=== PATIENT | female | born 1990 | race Caucasian/White ===

== ENCOUNTER 2018-07-03 10:23 | Inpatient (IN) | payer OTHER ==
[~2018-07-03] VITALS: Ht 157.5 cm; Wt 138.0 kg
[2018-07-03] MEDS ORDERED: morphine 4 MG/ML VIAL IV STA (11:09)
[2018-07-03] MEDS ORDERED: ONDANSETRON 4 MG INJ IV STA (11:09)
[2018-07-03] MEDS ORDERED: FAMOTIDINE 20 MG INJ IV STA (11:09)
[2018-07-03] MEDS ORDERED: SOD CHLORIDE 0.9% 1,000 ML IV STA (11:09)
[2018-07-03] MEDS ORDERED: morphine 2 MG INJ IV STA (12:27)
[2018-07-03] MEDS ORDERED: KETOROLAC 30 MG INJ IV STA (12:27)
[2018-07-03] MEDS ORDERED: PIPER-TAZO 3.375 GM IV (PMX) 100 ML IVPB ONE ×2 (14:00)
[2018-07-03] MEDS ORDERED: NACL 0.9% 3 ML SYG IV SCH (14:00)
[2018-07-03] MEDS ORDERED: ONDANSETRON 4 MG INJ IV PRN (14:00)
[2018-07-03] MEDS ORDERED: ACETAMINOPHEN 325 MG TAB PO PRN (14:00)
--- NOTE | 2018-07-03 14:04 | ERD ---
ER Documentation Chief Complaint Chief Complaint AP SINCE LAST NIGHT HPI This is a 28-year-old female with a past medical history of obesity, asthma who is presenting with 1 day of waxing and waning colicky aching right upper quadran t abdominal pain with nausea and a few episodes of nonbilious nonbloody vomiting. The patient does not endorse any alleviating or exacerbating factors. It came on suddenly last night. The patient does not report eating anything out of the ordinary. She does not endorse any constipation or diarrhea. She does not report any black or bloody or tarry stools. She does not report dysuria or hematuria or urgency or frequency. The patient denies feeling sick recently. The patient denies fever or chills. The patient has had no headache or vision changes. The patient does not endorse neck or back pain. The patient denies lightheadedness or dizziness. The patient has had no chest pain or trouble breathing. The patient has had no focal deficits. The patient has had no weakness or numbness or tingling to the face or extremities. ROS All systems reviewed and are negative except as per history of present illness. Allergies Allergies: Coded Allergies: No Known Allergy (Verified Allergy, Unknown, 04/13/06) PMhx/Soc Hx Respiratory Disorders: Yes (ASTHMA) Hx Alcohol Use: No Hx Substance Use: No Hx Tobacco Use: No FmHx Family History: No diabetes Physical Exam Vitals Vital Signs Date Temp Pulse Resp B/P (MAP) Pulse Ox O2 O2 Flow FiO2 Time Delivery Rate 07/03/18 99.0 89 18 150/72 99 10:25 (98) Physical Exam Const: No acute distress Head: Atraumatic Eyes: Normal Conjunctiva ENT: Normal External Ears, Nose and Mouth. Neck: Full range of motion. No meningismus. Resp: Clear to auscultation bilaterally Cardio: Regular rate and rhythm, no murmurs Abd: Obese. Right upper quadrant abdominal tenderness. No guarding or rebound. Normal bowel sounds Skin: No petechiae or rashes Back: No midline or flank tenderness Ext: No cyanosis, or edema Neur: Awake and alert Psych: Normal Mood and Affect Result Diagram: 07/03/18 1134 07/03/18 1300 Results 24 hrs Laboratory Tests Test 07/03/18 11:34 07/03/18 11:40 07/03/18 13:00 White Blood Count 11.7 10^3/ul Red Blood Count 4.31 10^6/ul Hemoglobin 12.5 g/dl Hematocrit 38.4 % Mean Corpuscular Volume 89.1 fl Mean Corpuscular Hemoglobin 29.0 pg Mean Corpuscular 32.6 g/dl Hemoglobin Concent Red Cell Distribution Width 13.5 % Platelet Count 308 10^3/UL Mean Platelet Volume 11.3 fl Immature Granulocytes % 0.400 % Neutrophils % 75.6 % Lymphocytes % 16.9 % Monocytes % 5.5 % Eosinophils % 1.3 % Basophils % 0.3 % Nucleated Red Blood Cells % 0.0 /100WBC Immature Granulocytes # 0.050 10^3/ul Neutrophils # 8.9 10^3/ul Lymphocytes # 2.0 10^3/ul Monocytes # 0.7 10^3/ul Eosinophils # 0.2 10^3/ul Basophils # 0.0 10^3/ul Nucleated Red Blood Cells # 0.0 10^3/ul Urine Color YELLOW Urine Clarity SLIGHTLY CLOUDY Urine pH 8.0 Urine Specific [place] 1.014 Urine Ketones NEGATIVE mg/dL Urine Nitrite NEGATIVE mg/dL Urine Bilirubin NEGATIVE mg/dL Urine Urobilinogen NEGATIVE mg/dL Urine Leukocyte Esterase NEGATIVE Armin/ul Urine Microscopic RBC 5 /HPF Urine Microscopic WBC 2 /HPF Urine Squamous Epithelial Cells FEW /HPF Urine Hemoglobin 2+ mg/dL Urine Glucose NEGATIVE mg/dL Urine Total Protein NEGATIVE mg/dl POC Beta HCG, Qualitative NEGATIVE Sodium Level 139 mmol/L Potassium Level 4.2 mmol/L Chloride Level 106 mmol/L Carbon Dioxide Level 27 mmol/L Anion Gap 6 Blood Urea Nitrogen 10 mg/dl Creatinine 0.55 mg/dl Est Glomerular Filtrat > 60 mL/min Rate mL/min Glucose Level 98 mg/dl Calcium Level 9.2 mg/dl Total Bilirubin 0.5 mg/dl Direct Bilirubin 0.00 mg/dl Indirect Bilirubin 0.5 mg/dl Aspartate Amino Transf (AST/SGOT) 26 IU/L Alanine 30 IU/L Aminotransferase (ALT/SGPT) Alkaline Phosphatase 62 IU/L Total Protein 7.4 g/dl Albumin 4.3 g/dl Globulin 3.10 g/dl Albumin/Globulin Ratio 1.38 Lipase 91 U/L Current Medications Medications Dose Sig/Mickey Start Time Status Last (Trade) Ordered Route PRN Stop Time Admin Dose Reason Admin Sodium 1,000 ml @ Q1H STAT 07/03/18 DC 07/03/18 Chloride 1,000 mls/hr IV 11:09 11:33 07/03/18 12:08 Morphine 4 mg ONCE STAT 07/03/18 DC 07/03/18 Sulfate IV 11:09 11:28 (morphine) 07/03/18 11:10 Ondansetron 4 mg ONCE STAT 07/03/18 DC 07/03/18 HCl (Zofran IV 11:09 11:28 Inj) 07/03/18 11:10 Famotidine 20 mg ONCE STAT 07/03/18 DC 07/03/18 (Pepcid Iv) IV 11: 11:28 07/03/18 11:10 Ketorolac 30 mg ONCE STAT 07/03/18 DC 07/03/18 Tromethamine IV 12:27 12:42 (Toradol) 07/03/18 12:28 Morphine 2 mg ONCE STAT 07/03/18 DC 07/03/18 Sulfate IV 12:27 12:42 (morphine) 07/03/18 12:28 Piperacillin 100 ml @ ONCE ONCE 07/03/18 UNV Sod/ 200 mls/hr IVPB 14:00 Tazobactam 07/03/18 14:29 Sod Procedures/MDM MDM The patient's presentation warrants further investigation. Previous medical records, if available, were reviewed. LABS The patient's laboratory testing was obtained and reviewed. No emergent treatment was required unless described below. CBC: Mild leukocytosis without shift, potentially reactive. No E/o severe anemia or thrombocytopenia Chemistry: No E/o severe acidosis or alkalosis or renal failure or liver disease or diabetic ketoacidosis Lipase: No E/o pancreatitis Urine: No E/o acute infection or hematuria IMAGING Imaging and Radiology interpretation reviewed. US GB FINDINGS: The liver is enlarged at 18.1 cm with a coarsened echotexture throughout without focal mass or intrahepatic biliary dilatation. There is n ormal hepatopedal flow within the main portal vein. The gallbladder is remarkable for echogenic, shadowing calculi with mild wall thickening at 3.2 mm with trace pericholecystic fluid. The common bile duct measures 11.7 mm in maximal dimension. The visualized portions of the pancreas are unremarkable with obscuration of the tail of the pancreas. No free fluid is identified. The right kidney measures 11.8 cm in length. There is normal echogenicity within the right kidney. There is no perinephric fluid collection. No hydronephrosis, mass, or calculus is seen. IMPRESSION: 1. Cholelithiasis with mild gallbladder wall thickening and trace pericholecystic fluid with a mildly dilated common bile duct. This may be associated with acute cholecystitis as well. Correlation with clinical and laboratory findings is suggested. 2. Mild hepatomegaly with a coarsened echotexture suggesting diffuse steatosis. Electronically viewed and signed by Physician Christina on 07/03/2018 12:2 5 TREATMENT/DISPOSITION The patient presents with right upper quadrant abdominal pain. The patient does have evidence of cholelithiasis, biliary colic and possible cholecystitis. The patient was treated for her pain in the emergency department, we are not able to get her pain under control. I do feel the patient would benefit from admission for refractory biliary colic and for evaluation by general surgery for possible cholecystitis. The patient was given Zosyn in the emergency department. I do not believe the patient is septic and I do not feel the patient requires a full septic work-up. Preoperative testing was completed. Dr. Stover, the on-call general surgeon, was consulted on the case. He will evaluate the patient in the hospital. He requested that a HIDA scan be completed. This was ordered. The patient does not have any evidence of peritonitis. The patient does not have clinical symptoms concerning for mesenteric ischemia or ischemic colitis. The patient does not have any epigastric pain. I have low suspicion for gastritis, PUD or GERD. The patient does not have left upper quadrant tenderness. I have low suspicion for pancreatitis. The patient does not have any right lower quadrant tenderness, or periumbilical tenderness. I have low suspicion for appendicitis. The patient does not have suprapubic tenderness. I have decreased suspicion for cystitis. The patient does not have any left lower quadrant tenderness, and I have low suspicion for diverticulosis or diverticulitis. The patient does not have any flank tenderness. The patient does not have gross hematuria. I have decreased suspicion for nephrolithiasis or renal colic. The patient does not have any palpable pulsatile mass or severe abdominal pain radiating to the back. I have low suspicion for aortic aneurysm, dissection or rupture. ADMISSION At this time, I feel that the patient requires admission for further evaluation and management. The patient will be admitted to [Panel] in accordance with the patient's insurance. The patient was accepted by Dr. Teresa at 1:46 PM on July 03, 2018. Dr. Stover, the on-call general surgeon, was consulted and will evaluate the patient in the hospital. Disclaimer: Inadvertent spelling and grammatical errors are likely due to EHR/dictation software use and do not reflect on the overall quality of patient care. Note that the electronic time recorded on this note does not necessarily reflect the actual time of the patient encounter. Departure Diagnosis: Primary Impression: Cholecystitis Additional Impressions: Recurrent biliary colic Leukocytosis Leukocytosis type: unspecified Qualified Codes: D72.829 - Elevated white blood cell count, unspecified Right upper quadrant abdominal pain Nausea and vomiting Vomiting type: unspecified Vomiting Intractability: non-intractable Qualified Codes: R11.2 - Nausea with vomiting, unspecified Condition: Serious PURNIMA BREAUX MD July 03, 2018 14:04
[2018-07-03] MEDS: SOD CHLORIDE 0.9% 1,000 ML IV SCH ×2 (14:35→22:34)
[2018-07-03] MEDS ORDERED: ALBU18HF INHALATION (14:51)
--- NOTE | 2018-07-03 14:57 | HP ---
Date/Time of Note Date/Time of Note DATE: 07/03/18 TIME: 14:57 Assessment/Plan VTE Prophylaxis Pharmacological prophylaxis: other Lines/Catheters IV [facility] Saline Lock Assessment/Plan Hospital Course Patient is a female with past medical history significant for obesity as well as occasional asthma who presents to [facility] for abdominal pain. Patient states that last night around 9 PM she began to have right upper quadrant pain however she thought this was just gastritis and tried some Pepto-Bismol and Mylanta. Patient states that this has happened occasionally in the past however whenever she takes Mylanta in a couple hours it would go away. The pain this time did not go away and continue to bother her which prompted her to come to the emergency room. Patient currently still says that there is pain involved however it is manageable with pain medications. Patient does have some nausea and had some episodes of vomiting, nonbilious nonbloody. Patient has no other issues at this current time, no shortness of breath, no chest pain, no headache, no leg pain, no bowel or bladder dysfunct ion. Patient is in relatively good health except for her obesity and occasional asthma where she needs an occasional inhaler when she gets ill. Objective Physical exam General: Patient is laying in bed and answers questions appropriately Mentation: Patient is alert and oriented 4, Head: Normocephalic atraumatic Eyes: EOMI, pupils reactive to light Neck: Supple, nontender, midline Respiratory: Clear to auscultation bilaterally Cardiovascular: regular rate, no obvious murmurs Gastrointestinal: Right upper quadrant tender to palpation, bowel sounds heard. Neurological: Moves all extremities spontaneously Skin: No new skin lesions Assessment and plan Right upper quadrant abdominal pain, possible cholecystitis -Ultrasound showing possible cholecystitis, versus other gastritis -PPI twice daily for now -General surgeon has been consulted, recommends HIDA scan, ordered -N.p.o. -IV antibiotic -IV fluid Asthma -As needed duo nebs as patient does not need inhaler every day Obesity -Dietary modifications recommended Disposition -Pending HIDA results. Result Diagram: 07/03/18 1134 07/03/18 1300 Results 24hrs Laboratory Tests Test 07/03/18 11:34 07/03/18 11:40 07/03/18 13:00 07/03/18 14:21 White Blood Count 11.7 H Red Blood Count 4.31 Hemoglobin 12.5 Hematocrit 38.4 Mean Corpuscular 89.1 Volume Mean Corpuscular 29.0 Hemoglobin Mean Corpuscular 32.6 Hemoglobin Concen t Red Cell 13.5 Distribution Width Platelet Count 308 Mean Platelet 11.3 H Volume Immature 0.400 Granulocytes % Neutrophils % 75.6 Lymphocytes % 16.9 Monocytes % 5.5 Eosinophils % 1.3 Basophils % 0.3 Nucleated Red 0.0 Blood Cells % Immature 0.050 H Granulocytes # Neutrophils # 8.9 H Lymphocytes # 2.0 Monocytes # 0.7 Eosinophils # 0.2 Basophils # 0.0 Nucleated Red 0.0 Blood Cells # Urine Color YELLOW Urine Clarity SLIGHTLY CLOUDY A Urine pH 8.0 Urine Specific 1.014 [place]ana Urine Ketones NEGATIVE Urine Nitrite NEGATIVE Urine Bilirubin NEGATIVE Urine NEGATIVE Urobilinogen Urine Leukocyte NEGATIVE Esterase Urine Microscopic 5 RBC Urine Microscopic 2 WBC Urine Squamous FEW Epithelial Cells Urine Hemoglobin 2+ H Urine Glucose NEGATIVE Urine Total NEGATIVE Protein POC Beta HCG, NEGATIVE Qualitative Sodium Level 139 Potassium Level 4.2 Chloride Level 106 Carbon Dioxide 27 Level Anion Gap 6 Blood Urea 10 Nitrogen Creatinine 0.55 Est Glomerular > 60 Filtrat Rate mL/min Glucose Level 98 Calcium Level 9.2 Total Bilirubin 0.5 Direct Bilirubin 0.00 Indirect 0.5 Bilirubin Aspartate Amino 26 Transf (AST/SGOT) Alanine 30 Aminotransferase (ALT/SGPT) Alkaline 62 Phosphatase Total Protein 7.4 Albumin 4.3 Globulin 3.10 Albumin/Globulin 1.38 Ratio Lipase 91 Prothrombin Time 13.2 Prothrombin Time 1.0 Ratio INR International 0.99 Normalized Ratio HPI/ROS Admit Date/Time Admit Date/Time PMH/Family/Social Past Medical History Medications Current Medications Acetaminophen (Tylenol Tab) 650 mg ER BRIDGE PRN PO .MILD PAIN 1-3 OR TEMP; Start 07/03/18 at 14:00; Stop 07/04/18 at 13:59 Piperacillin Sod/ Tazobactam Sod 100 ml @ 200 mls/hr Q6 IVPB ; Start 07/03/18 at 18:00 Sodium Chloride 1,000 ml @ 150 mls/hr Q6H40M IV Last administered on 07/03/18at 14:35; Admin Dose 150 MLS/HR; Start 07/03/18 at 13:56 IV Flush (NS 3 ml) 3 ml PER PROTOCOL IV ; Start 07/03/18 at 14:00 Ondansetron HCl (Zofran Inj) 4 mg Q6H PRN IV NAUSEA/VOMITING; Start 07/03/18 at 14:00 Acetaminophen/ Hydrocodone Bitart ([place] (5/325)) 1 tab Q6H PRN PO .PAIN 4-6; Start 07/03/18 at 14:00 Morphine Sulfate (morphine) 4 mg Q4H PRN IV .PAIN 7-10; Start 07/03/18 at 14:00 Pantoprazole (Protonix Iv) 40 mg BID IV ; Start 07/04/18 at 06:00; Status UNV Coded Allergies: diphenhydramine (Unverified Allergy, Unknown, 07/03/18) Social History Smoking Status: Never smoker Exam/Review of Systems Vital Signs Vitals Vital Signs Date Temp Pulse Resp B/P (MAP) Pulse Ox O2 O2 Flow FiO2 Time Delivery Rate 07/03/18 66 16 104/56 100 Room Air 14:00 (72) 07/03/18 99.0 10:25 CESARIO JOSEPH July 03, 2018 14:57
[2018-07-03] MEDS ORDERED: ALBUTEROL/IPRATROPIUM (NEB) 3 ML AMP HHN PRN (15:00)
[2018-07-03] MEDS: PIPER-TAZO 3.375 GM IV (PMX) 100 ML IVPB SCH (17:30)
[2018-07-03] MEDS: PANTOPRAZOLE 40 MG INJ IV SCH (17:30)
[2018-07-03 22:09] VITALS: BP 124/69; PULSE 72; RESP 18
[2018-07-03 22:13] VITALS: Ht 157.5 cm; Wt 138.0 kg
[2018-07-03] MEDS: ONDANSETRON 4 MG INJ IV PRN (22:34)
[2018-07-03] MEDS: morphine 2 MG INJ IV PRN (22:34)
[2018-07-04] MEDS: PIPER-TAZO 3.375 GM IV (PMX) 100 ML IVPB SCH ×4 (00:12→18:37)
[2018-07-04 01:11] VITALS: BP 115/61; PULSE 89; RESP 18
[2018-07-04] MEDS: SOD CHLORIDE 0.9% 1,000 ML IV SCH ×7 (03:07→23:16)
[2018-07-04] MEDS: PANTOPRAZOLE 40 MG INJ IV SCH (05:50)
[2018-07-04] MEDS ORDERED: PANTOPRAZOLE 40 MG INJ IV SCH (06:00)
[2018-07-04] MEDS: morphine 2 MG INJ IV PRN ×5 (06:06→22:39)
[2018-07-04] MEDS ORDERED: NEOSTIGMINE 3 MG/3 ML SYRINGE ONE (07:00)
[2018-07-04] MEDS ORDERED: DESFLURANE 15 MIN ONE (07:00)
[2018-07-04] MEDS ORDERED: GLYCOPYRROLATE 0.4 MG INJ ONE (07:00)
[2018-07-04 07:49] VITALS: BP 122/56; PULSE 95; RESP 18
--- NOTE | 2018-07-04 09:14 | PREAC ---
Date/Time of Note Date/Time of Note DATE: 07/04/18 TIME: 09:13 Anesthesia Eval and Record Evaluation Time Pre-Procedure Interview DATE: 07/04/18 TIME: 09:13 Age 28 Sex female NPO: 8 hrs (07/02/18) Preoperative diagnosis cholecystitis Planned procedure laparoscopic possible open cholecystectomy Past Medical History Past Medical History: Includes Pulm: Asthma (asthma symptoms triggered by URI. Well controlled asthma. Last year used albuterol once. ) GI: GERD (DENIES GERD), Morbid obesity (BMI 55) Surgery & Anesthesia Issues No known issue (spinal anesthesia for csection twice) Meds Anticoagulation: No Beta Kathleen within 24 hr: No Reason Beta Kathleen not given: Pt. not on B-Kathleen Reported Medications Albuterol Sulfate* (Ventolin HFA*) 18 Gm Hfa.aer.ad, 2 PUFF INHALATION Q4H PRN for NEEDED, #1 INHALER 07/03/18 Current Medications Acetaminophen (Tylenol Tab) 650 mg ER BRIDGE PRN PO .MILD PAIN 1-3 OR TEMP; Start 07/03/18 at 14:00; Stop 07/04/18 at 13:59 Piperacillin Sod/ Tazobactam Sod 100 ml @ 200 mls/hr Q6 IVPB Last administered on 07/04/18at 05:51; Admin Dose 200 MLS/HR; Start 07/03/18 at 18:00 Sodium Chloride 1,000 ml @ 150 mls/hr Q6H40M IV Last administered on 07/04/18at 06:07; Admin Dose 150 MLS/HR; Start 07/03/18 at 13:56 IV Flush (NS 3 ml) 3 ml PER PROTOCOL IV ; Start 07/03/18 at 14:00 Ondansetron HCl (Zofran Inj) 4 mg Q6H PRN IV NAUSEA/VOMITING Last administered on 07/03/18at 22:34; Admin Dose 4 MG; Start 07/03/18 at 14:00 Acetaminophen/ Hydrocodone Bitart ([place] (5/325)) 1 tab Q6H PRN PO .PAIN 4-6; Start 07/03/18 at 14:00 Morphine Sulfate (morphine) 4 mg Q4H PRN IV .PAIN 7-10 Last administered on 07/04/18at 06:06; Admin Dose 4 MG; Start 07/03/18 at 14:00 Pantoprazole (Protonix Iv) 40 mg 0600,1800 IV Last administered on 07/04/18at 05:50; Admin Dose 40 MG; Start 07/03/18 at 18:00 Albuterol/ Ipratropium (Duoneb) 3 ml Q2H RESP THERAPY PRN HHN shortness of breath; Start 07/03/18 at 15:00 Meds reviewed: Yes Allergies Coded Allergies: diphenhydramine (Unverified Allergy, Intermediate, 07/03/18) PT DEVELOPS HIVES Allergies Reviewed: Yes Labs/Studies Labs Reviewed: Reviewed by anesthesiologist Result Diagram: 07/04/18 0452 07/04/18 0500 Laboratory Tests 07/04/18 04:52 07/04/18 05:00 Blood Bank Test 07/03/18 14:21 Antibody Screen NEGATIVE Blood Type A POSITIVE test: Negative (beta hcg qualitative NEGATIVE) Pre-procedure Exam Last vitals Vital Signs Date Temp Pulse Resp B/P (MAP) Pulse Ox O2 O2 Flow FiO2 Time Delivery Rate 07/04/18 98.8 95 18 122/56 94 07:49 (78) 07/03/18 Room Air 21:40 Airway: Adequate mouth opening, Adequate thyromental dist Mallampati: Mallampati III (thick short neck, rec glidescope for intubation) Teeth: Normal Lung: Normal Heart: Normal ASA Physical Status ASA physical status: 2 Emergency: E Planned Anesthetic General/MAC: ETT Nerve block: TAP (bilateral) Planned Pain Management Single shot nerve block, Parenteral pain med, Local by surgeon Pre-operative Attestations Prior to commencing anesthesia and surgery, the patient was re-evaluated, there was verification of: *The patient's identity *The results of appropriate recent lab work and preoperative vital signs *The above evaluation not changing prior to induction *Anesthetic plan, risk benefits, alternative and complications discussed with patient/family; questions answered; patient/family understands, accepts and wishes to proceed. BANDAR LEARY July 04, 2018 09:14
[2018-07-04] MEDS: ONDANSETRON 4 MG INJ IV PRN ×3 (10:59→22:39)
--- NOTE | 2018-07-04 12:43 | PN ---
Date/Time of Note Date/Time of Note DATE: 07/04/18 TIME: 12:41 Objective Vitals Vital Signs Date Temp Pulse Resp B/P (MAP) Pulse Ox O2 O2 Flow FiO2 Time Delivery Rate 07/04/18 98.8 95 18 122/56 94 07:49 (78) 07/03/18 Room Air 21:40 Intake and Output 07/03/18 07/03/18 07/04/18 1515:00 23:00 07:00 IntakeIntake Total 1200 ml BalanceBalance 1200 ml Results Result Diagram: 07/04/18 0452 07/04/18 0500 Medications Medications Current Medications Acetaminophen (Tylenol Tab) 650 mg ER BRIDGE PRN PO .MILD PAIN 1-3 OR TEMP; Start 07/03/18 at 14:00; Stop 07/04/18 at 13:59 Piperacillin Sod/ Tazobactam Sod 100 ml @ 200 mls/hr Q6 IVPB Last administered on 07/04/18at 12:26; Admin Dose 200 MLS/HR; Start 07/03/18 at 18:00 Sodium Chloride 1,000 ml @ 150 mls/hr Q6H40M IV Last administered on 07/04/18at 06:07; Admin Dose 150 MLS/HR; Start 07/03/18 at 13:56 IV Flush (NS 3 ml) 3 ml PER PROTOCOL IV ; Start 07/03/18 at 14:00 Ondansetron HCl (Zofran Inj) 4 mg Q6H PRN IV NAUSEA/VOMITING Last administered on 07/04/18at 10:59; Admin Dose 4 MG; Start 07/03/18 at 14:00 Acetaminophen/ Hydrocodone Bitart ([place] (5/325)) 1 tab Q6H PRN PO .PAIN 4-6; Start 07/03/18 at 14:00 Morphine Sulfate (morphine) 4 mg Q4H PRN IV .PAIN 7-10 Last administered on 07/04/18at 10:28; Admin Dose 4 MG; Start 07/03/18 at 14:00 Pantoprazole (Protonix Iv) 40 mg 0600,1800 IV Last administered on 07/04/18at 05:50; Admin Dose 40 MG; Start 07/03/18 at 18:00 Albuterol/ Ipratropium (Duoneb) 3 ml Q2H RESP THERAPY PRN HHN shortness of breath; Start 07/03/18 at 15:00 VTE Prophylaxis Risk score (from Nsg)>0 risk: 1 SCD applied (from Ns): Yes Lines/Catheters IV Catheter Type: Figueroa in Place: No Assessment/Plan Hospital Course Subjective Patient still has mild residual abdominal pain however feels much better than yesterday Objective Physical exam General: Patient is laying in bed and answers questions appropriately Mentation: Patient is alert and oriented 4, Head: Normocephalic atraumatic Eyes: EOMI, pupils reactive to light Neck: Supple, nontender, midline Respiratory: Clear to auscultation bilaterally Cardiovascular: regular rate, no obvious murmurs Gastrointestinal: Right upper quadrant tender to palpation, bowel sounds heard. Neurological: Moves all extremities spontaneously Skin: No new skin lesions Assessment and plan Right upper quadrant abdominal pain, likely cholecystitis -Ultrasound showing possible cholecystitis, HIDA scan more consistent with cholecystitis -PPI twice daily for now, for associated gastritis -General surgeon has been consulted, planning for surgery today -N.p.o. -IV antibiotic -IV fluid Asthma -As needed duo nebs as patient does not need inhaler every day Obesity -Dietary modifications recommended Disposition -surgery today CESARIO JOSEPH July 04, 2018 12:43
[2018-07-04 13:18] VITALS: BP 120/65; PULSE 92; RESP 18
--- NOTE | 2018-07-04 15:16 | CONS ---
Assessment/Plan Assessment/Plan Assessment/Plan (Daily) Acute cholecystitis Plan: Laparoscopic cholecystectomy, possible open. I have discussed the procedu re, outcomes, expectations, alternatives and risks in detail with the patient who has an excellent understanding of the nature situation and agrees to the proposed plan of therapy as outlined. Consultation Date/Type/Reason Admit Date/Time Date of Consultation: July 04, 2018 Type of Consult General surgery Reason for Consultation Acute cholecystitis Date/Time of Note DATE: 07/04/18 TIME: 15:13 Hx of Present Illness The patient is a 28-year-old female who is readmitted with symptoms of biliary colic. She has known gallstone disease. Yesterday she was noted to have a tender right upper quadrant, a slightly elevated white blood cell count, and a HIDA scan was performed which was compatible with acute cholecystitis and nonvisualization of the gallbladder. Her LFTs are normal. She has had no fevers chills or jaundice. Review of systems HEENT: Unremarkable Pulmonary: History of asthma Cardiac: No history of chest pain, KS or arrhythmia GI: Morbid obesity. As in the HPI : 3 previous pregnancies Past Medical History Medical History: gallstones Home Meds Reported Medications Albuterol Sulfate* (Ventolin HFA*) 18 Gm Hfa.aer.ad, 2 PUFF INHALATION Q4H PRN for NEEDED, #1 INHALER 07/03/18 Medications Current Medications Piperacillin Sod/ Tazobactam Sod 100 ml @ 200 mls/hr Q6 IVPB Last administered on 07/04/18at 12:26; Admin Dose 200 MLS/HR; Start 07/03/18 at 18:00 Sodium Chloride 1,000 ml @ 150 mls/hr Q6H40M IV Last administered on 07/04/18at 14:02; Admin Dose 150 MLS/HR; Start 07/03/18 at 13:56 IV Flush (NS 3 ml) 3 ml PER PROTOCOL IV ; Start 07/03/18 at 14:00 Ondansetron HCl (Zofran Inj) 4 mg Q6H PRN IV NAUSEA/VOMITING Last administered on 07/04/18at 10:59; Admin Dose 4 MG; Start 07/03/18 at 14:00 Acetaminophen/ Hydrocodone Bitart ([place] (5/325)) 1 tab Q6H PRN PO .PAIN 4-6; Start 07/03/18 at 14:00 Morphine Sulfate (morphine) 4 mg Q4H PRN IV .PAIN 7-10 Last administered on 07/04/18at 14:28; Admin Dose 4 MG; Start 07/03/18 at 14:00 Albuterol/ Ipratropium (Duoneb) 3 ml Q2H RESP THERAPY PRN HHN shortness of breath; Start 07/03/18 at 15:00 Famotidine (Pepcid Iv) 20 mg Q12 IV ; Start 07/04/18 at 21:00 Allergies: Coded Allergies: diphenhydramine (Unverified Allergy, Intermediate, 07/03/18) PT DEVELOPS HIVES Past Surgical History Past Surgical Hx: no surgical history Family History Significant Family History: no pertinent family hx Social History Smoking Status: Never smoker Exam/Review of Systems Exam Vitals Vital Signs Date Temp Pulse Resp B/P (MAP) Pulse Ox O2 O2 Flow FiO2 Time Delivery Rate 07/04/18 99.2 92 18 120/65 97 13:18 (83) 07/03/18 Room Air 21:40 Intake and Output 07/03/18 07/03/18 07/04/18 1515:00 23:00 07:00 IntakeIntake Total 1200 ml BalanceBalance 1200 ml Constitutional: alert, oriented Psych: no complaints Head: normocephalic Eyes: nl conjunctiva ENMT: nl external ears & nose Neck: supple Respiratory: clear to auscultation Cardiovascular: regular rate and rhythm Gastrointestinal: tender (Abdomen is obese with slight tenderness to deep palpation in the right upper quadrant) Musculoskeletal: nl extremities to inspection Extremities: normal pulses Neurological: MOTOR COACH CHAUFFEUR II-XII intact Skin: nl turgor Results Result Diagram: 07/04/18 0452 07/04/18 0500 Results 24hrs Laboratory Tests Test 07/04/18 04:52 07/04/18 05:00 White Blood Count 10.0 Red Blood Count 3.69 L Hemoglobin 10.7 L Hematocrit 33.2 L Mean Corpuscular Volume 90.0 Mean Corpuscular Hemoglobin 29.0 Mean Corpuscular Hemoglobin Concent 32.2 Red Cell Distribution Width 14.1 Platelet Count 246 # Mean Platelet Volume 11.0 H Immature Granulocytes % 0.300 Neutrophils % 70.3 Lymphocytes % 17.6 Monocytes % 8.4 Eosinophils % 3.1 Basophils % 0.3 Nucleated Red Blood Cells % 0.0 Immature Granulocytes # 0.030 Neutrophils # 7.0 Lymphocytes # 1.8 Monocytes # 0.8 Eosinophils # 0.3 Basophils # 0.0 Nucleated Red Blood Cells # 0.0 Hemoglobin A1c 5.6 Sodium Level 141 Potassium Level 4.4 Chloride Level 109 Carbon Dioxide Level 29 Anion Gap 3 L Blood Urea Nitrogen 12 Creatinine 0.82 Est Glomerular Filtrat Rate mL/min > 60 Glucose Level 109 Calcium Level 8.4 Magnesium Level 2.3 Total Bilirubin 0.7 Direct Bilirubin 0.00 Indirect Bilirubin 0.7 Aspartate Amino Transf (AST/SGOT) 24 Alanine Aminotransferase (ALT/SGPT) 33 Alkaline Phosphatase 56 Total Protein 6.3 # Albumin 3.6 Globulin 2.70 Albumin/Globulin Ratio 1.33 Triglycerides Level 101 Cholesterol Level 110 LDL Cholesterol, Calculated 54 HDL Cholesterol 36 Cholesterol/HDL Ratio 3.0 Thyroid Stimulating Hormone (TSH) 3.630 Medications Medication Current Medications Piperacillin Sod/ Tazobactam Sod 100 ml @ 200 mls/hr Q6 IVPB Last administered on 07/04/18 12:26; Admin Dose 200 MLS/HR; Start 07/03/18 at 18:00 Sodium Chloride 1,000 ml @ 150 mls/hr Q6H40M IV Last administered on 07/04/18 14:02; Admin Dose 150 MLS/HR; Start 07/03/18 at 13:56 IV Flush (NS 3 ml) 3 ml PER PROTOCOL IV ; Start 07/03/18 at 14:00 Ondansetron HCl (Zofran Inj) 4 mg Q6H PRN IV NAUSEA/VOMITING Last administered on 07/04/18at 10:59; Admin Dose 4 MG; Start 07/03/18 at 14:00 Acetaminophen/ Hydrocodone Bitart ([place] (5/325)) 1 tab Q6H PRN PO .PAIN 4-6; Start 07/03/18 at 14:00 Morphine Sulfate (morphine) 4 mg Q4H PRN IV .PAIN 7-10 Last administered on 07/04/18 14:28; Admin Dose 4 MG; Start 07/03/18 at 14:00 Albuterol/ Ipratropium (Duoneb) 3 ml Q2H RESP THERAPY PRN HHN shortness of breath; Start 07/03/18 at 15:00 Famotidine (Pepcid Iv) 20 mg Q12 IV ; Start 07/04/18 at 21:00 GEMA POLLARD MD July 04, 2018 15:16
[2018-07-04] MEDS: HYDROCODONE/APAP (5/325) TAB PO PRN (16:46)
[2018-07-04 20:18] VITALS: BP 114/58; PULSE 91; RESP 18
[2018-07-04] MEDS: FAMOTIDINE 20 MG INJ IV SCH (21:11)
[2018-07-05] VITALS (17 sets, daily range): BP systolic 115–137; BP diastolic 53–73; PULSE 82–116; RESP 16–26
[2018-07-05] MEDS: PIPER-TAZO 3.375 GM IV (PMX) 100 ML IVPB SCH ×5 (00:18→23:58)
[2018-07-05] MEDS: HYDROCODONE/APAP (5/325) TAB PO PRN (01:48)
[2018-07-05] MEDS ORDERED: ACETAMINOPHEN 1000MG/100ML IV 100 ML IVPB ONE (03:00)
[2018-07-05] MEDS: SOD CHLORIDE 0.9% 1,000 ML IV SCH ×4 (05:01→20:38)
[2018-07-05] MEDS: morphine 2 MG INJ IV PRN ×3 (05:01→20:39)
[2018-07-05] MEDS ORDERED: NEOSTIGMINE 3 MG/3 ML SYRINGE ONE (07:00)
[2018-07-05] MEDS ORDERED: GLYCOPYRROLATE 0.4 MG INJ ONE (07:00)
--- NOTE | 2018-07-05 09:01 | PREAC ---
Date/Time of Note Date/Time of Note DATE: 07/05/18 TIME: 09:00 Anesthesia Eval and Record Evaluation Time Pre-Procedure Interview DATE: 07/05/18 TIME: 09:00 Age 28 Sex female NPO: 8 hrs Preoperative diagnosis Cholelithiasis Planned procedure Lap. Cholecystectomy Past Medical History Past Medical History: Includes GI: Obesity Surgery & Anesthesia Issues No known issue Meds Anticoagulation: No Beta Kathleen within 24 hr: No Reason Beta Kathleen not given: Pt. not on B-Kathleen Reported Medications Albuterol Sulfate* (Ventolin HFA*) 18 Gm Hfa.aer.ad, 2 PUFF INHALATION Q4H PRN for NEEDED, #1 INHALER 07/03/18 Current Medications Piperacillin Sod/ Tazobactam Sod 100 ml @ 200 mls/hr Q6 IVPB Last administered on 07/05/18at 05:48; Admin Dose 200 MLS/HR; Start 07/03/18 at 18:00 Sodium Chloride 1,000 ml @ 150 mls/hr Q6H40M IV Last administered on 07/05/18 05:01; Admin Dose 150 MLS/HR; Start 07/03/18 at 13:56 IV Flush (NS 3 ml) 3 ml PER PROTOCOL IV ; Start 07/03/18 at 14:00 Ondansetron HCl (Zofran Inj) 4 mg Q6H PRN IV NAUSEA/VOMITING Last administered on 07/04/18at 22:39; Admin Dose 4 MG; Start 07/03/18 at 14:00 Acetaminophen/ Hydrocodone Bitart ([place] (5/325)) 1 tab Q6H PRN PO .PAIN 4-6 Last administered on 07/05/18at 01:48; Admin Dose 1 TAB; Start 07/03/18 at 14:00 Morphine Sulfate (morphine) 4 mg Q4H PRN IV .PAIN 7-10 Last administered on 07/05/18 05:01; Admin Dose 4 MG; Start 07/03/18 at 14:00 Albuterol/ Ipratropium (Duoneb) 3 ml Q2H RESP THERAPY PRN HHN shortness of breath; Start 07/03/18 at 15:00 Famotidine (Pepcid Iv) 20 mg Q12 IV Last administered on 07/04/18at 21:11; Admin Dose 20 MG; Start 07/04/18 at 21:00 Meds reviewed: Yes Allergies Coded Allergies: diphenhydramine (Unverified Allergy, Intermediate, 07/03/18) PT DEVELOPS HIVES Allergies Reviewed: Yes Labs/Studies Labs Reviewed: Reviewed by anesthesiologist Result Diagram: 07/05/18 0729 07/05/18 0729 Laboratory Tests 07/05/18 07:29 test: Negative Pre-procedure Exam Last vitals Vital Signs Date Temp Pulse Resp B/P (MAP) Pulse Ox O2 O2 Flow FiO2 Time Delivery Rate 07/05/18 100.1 04:01 07/05/18 104 18 130/67 99 02:01 (88) 07/03/18 Room Air 21:40 Airway: Adequate mouth opening Mallampati: Mallampati III Teeth: Normal Lung: Normal Heart: Normal ASA Physical Status ASA physical status: 2 Emergency: None Planned Anesthetic General/MAC: ETT Pre-operative Attestations Prior to commencing anesthesia and surgery, the patient was re-evaluated, there was verification of: *The patient's identity *The results of appropriate recent lab work and preoperative vital signs *The above evaluation not changing prior to induction *Anesthetic plan, risk benefits, alternative and complications discussed with patient/family; questions answered; patient/family understands, accepts and wishes to proceed. AJITH GARCIA MD July 05, 2018 09:01
[2018-07-05] MEDS ORDERED: CEFAZOLIN 1 GM INJ ONE (09:04)
[2018-07-05] MEDS ORDERED: PROPOFOL 20 ML ONE (09:04)
[2018-07-05] MEDS ORDERED: ROCURONIUM 50 MG INJ ONE (09:04)
[2018-07-05] MEDS ORDERED: SUCCINYLCHOLINE CHLORIDE 100 MG/5 ML SYG IV ONE (09:04)
[2018-07-05] MEDS ORDERED: MIDAZOLAM 1 MG/ML 2 ML INJ ONE (09:04)
[2018-07-05] MEDS ORDERED: KETOROLAC 30 MG INJ ONE (09:05)
[2018-07-05] MEDS ORDERED: ONDANSETRON 4 MG INJ ONE (09:05)
[2018-07-05] MEDS ORDERED: BUPIVACAINE 0.25%/EPI (SDV) 30 ML INJ ONE (09:17)
[2018-07-05] MEDS ORDERED: ONDANSETRON 4 MG INJ IV PRN ×2 (09:30→11:00)
[2018-07-05] MEDS ORDERED: OXYCODONE/ACETAMINOPHEN (5/325) TAB PO PRN ×3 (09:30→11:00)
[2018-07-05] MEDS ORDERED: morphine 2 MG INJ IV PRN (11:00)
--- NOTE | 2018-07-05 11:02 | OPR ---
Date/Time of Note Date/Time of Note DATE: 07/05/18 TIME: 10:56 Operative Report Procedure Date: July 05, 2018 Preoperative Diagnosis Acute cholecystitis Postoperative Diagnosis Acute cholecystitis Operation/Procedure Performed 1. Laparoscopic cholecystectomy 2. Placement of drain Surgeon Gema Pollard MD Arborist Climber None Anesthesia Type: general Anesthesiologist: AJITH GARCIA MD Estimated Blood Loss: other (Approximately 100 cc) Transfusion none Specimen Gallbladder Grafts/Implants none Tubes/Drains #19 Round Iam drain Complications none Pt Condition Post Procedure: stable Disposition: PACU Indications Acute cholecystitis Procedure Description After satisfactory general endotracheal anesthesia was achieved, the abdomen was prepped and draped in the usual fashion. The abdomen was insufflated with carbon dioxide through an umbilical Veress needle to 15 mmHg pressure. The Veress needle was removed and the umbilical incision extended to 5 mm through w hich a 5 mm trocar was placed. A 5 mm 0 degree lens was placed. Laparoscopy showed an acutely inflamed, markedly thickened gallbladder. Under direct visualization a 12 mm epigastric trocar was placed as well as 2 more 5 mm right lateral abdominal trochars. The dome of the gallbladder was grasped and retracted superiorly. Omental adhesions were taken down with blunt and electro cautery dissection. This enabled Thacker's pouch to be grasped and retracted inferolaterally. The hepatoduodenal ligament was carefully dissected between the gallbladder and the birgit hepatis. The cystic duct was dissected circumferentially then triply hemoclipped and divided high at the junction of the gallbladder and the cystic duct. The cystic artery was identified immediate ly posteriorly. This was triply hemoclipped and divided. The gallbladder was then dissected from below using electrocautery dissection it was placed into an Endo Catch which was removed by the epigastric route. During the dissection a small opening of the gallbladder resulted in spillage of some tiny stones. These were either primarily removed or suctioned out such that at the completion of the procedure hemostasis was total and there were no residual stones. Because of the severe infection of the gallbladder it was elected to place a drain. A #19 round Iam drain was placed draining the subhepatic space and gallbladder fossa, and exited through the lateralmost puncture site where it was secured to skin with 2-0 silk. 2 fascial sutures of 0 Vicryl were placed in the epigastrium with the assistance of a safia-close device. The abdomen was then desufflated and all trochars were removed. 2 more 0 Vicryl sutures were placed in the epigastrium. The skin punctures were infiltrated with 30 cc of 0.25% Marcaine with epinephrine and closed with jeremi. Sponge and needle counts were reported as correct x2. GEMA POLLARD MD July 05, 2018 11:02
--- NOTE | 2018-07-05 11:11 | PAC ---
Date/Time of Note Date/Time of Note DATE: 07/05/18 TIME: 11:11 Post-Anesthesia Notes Post-Anesthesia Note Last documented vital signs Vital Signs Date Temp Pulse Resp B/P (MAP) Pulse Ox O2 O2 Flow FiO2 Time Delivery Rate 07/05/18 100.1 04:01 07/05/18 104 18 130/67 99 02:01 (88) 07/03/18 Room Air 21:40 Activity: WNL Respiratory function: WNL Cardiovascular function: WNL Mental status: Baseline Pain reasonably controlled: Yes Hydration appropriate: Yes Nausea/Vomiting absent: Yes AJITH GARCIA MD July 05, 2018 11:11
--- NOTE | 2018-07-05 11:19 | PAC ---
Date/Time of Note Date/Time of Note DATE: 07/05/18 TIME: 11:19 Post-Anesthesia Notes Post-Anesthesia Note Last documented vital signs Vital Signs Date Temp Pulse Resp B/P (MAP) Pulse Ox O2 O2 Flow FiO2 Time Delivery Rate 07/05/18 100.1 04:01 07/05/18 104 18 130/67 99 02:01 (88) 07/03/18 Room Air 21:40 Activity: WNL Respiratory function: WNL Cardiovascular function: WNL Mental status: Baseline Pain reasonably controlled: Yes Hydration appropriate: Yes Nausea/Vomiting absent: Yes AJITH GARCIA MD July 05, 2018 11:19
[2018-07-05] MEDS: HYDROmorphONE 1 MG/5 ML IV SYRINGE IV PRN ×2 (11:20→11:53)
[2018-07-05] MEDS: FAMOTIDINE 20 MG INJ IV SCH ×3 (12:43→20:41)
--- NOTE | 2018-07-05 16:17 | PN ---
Date/Time of Note Date/Time of Note DATE: 07/05/18 TIME: 16:17 Assessment/Plan VTE Prophylaxis Risk score (from Nsg)>0 risk: 2 SCD applied (from Ns): Yes Pharmacological prophylaxis: NA/contraindicated Pharm contraindication: low risk/ambulating Lines/Catheters IV Catheter Type (from Nrsg): Peripheral IV Urinary Cath still in place: No Assessment/Plan Hospital Course SUBJECTIVE: Complains of abdominal pain. OBJECTIVE: Physical Exam General: Morbidly obese 28 year-old female lying in bed in no apparent distress. HEENT: Normocephalic, atraumatic. Eyes: Anicteric sclerae, conjunctivae clear. ENT: Nasal septum midline, oral mucosa moist. Neck: Short and obese. Respiratory: Bilaterally clear breath sounds. No use of accessory muscles of respiration. No adventitious breath sounds. Cardiovascular: S1, S2 heard. Regular rate and rhythm. Abdomen: Soft and nondistended. Dressings over laparoscopic incision sites. SHAYNA drain in place. Genitourinary: Deferred. Extremities: No cyanosis, no clubbing, no edema. Peripheral pulses palpable. Neurologic: Cranial nerves II through XII grossly intact. The patient is awake, alert, and oriented. Skin: Normal skin turgor. No skin rashes. Labs & Vitals per chart ASSESSMENT & PLAN 28-year-old female with comorbidities including morbid obesity and asthma who presented to [facility] with abdominal pain with gallbladder ultrasound showing cholelithiasis with mild gallbladder wall thickening and trace pericholecystic fluid who was admitted to inpatient setting. 1. Cholecystitis. -Status post laparoscopic cholecystectomy and placement of a drain on 07/05/2018. -Continue pain control. -Advance diet as per general surgery. -Encourage frequent ambulation and use of incentive spirometry. -Continue ABX. 2. Morbid obesity. -BMI more than 55 kilograms per meter square -Advised weight reduction. 3. History of asthma. -Stable. 4. Fluids, electrolytes, and nutrition. -Clear liquid diet. -Advance as tolerated. 5. DVT prophylaxis. -Bilateral SCDs. 6. Plan. -Continue pain control. -Advancement of diet as per general surgery. -Encourage frequent use of incentive spirometry. The patient was seen in collaboration with Dr. Olvera. Result Diagram: 07/05/18 0729 07/05/18 0729 Results 24hrs Laboratory Tests Test 07/05/18 07:29 White Blood Count 12.2 #H Red Blood Count 3.94 L Hemoglobin 11.1 L Hematocrit 35.9 L Mean Corpuscular Volume 91.1 Mean Corpuscular Hemoglobin 28.2 L Mean Corpuscular Hemoglobin Concent 30.9 L Red Cell Distribution Width 13.9 Platelet Count 245 Mean Platelet Volume 10.8 H Immature Granulocytes % 0.400 Neutrophils % 70.9 Lymphocytes % 15.9 Monocytes % 10.2 Eosinophils % 2.3 Basophils % 0.3 Nucleated Red Blood Cells % 0.0 Immature Granulocytes # 0.050 H Neutrophils # 8.7 H Lymphocytes # 1.9 Monocytes # 1.2 H Eosinophils # 0.3 Basophils # 0.0 Nucleated Red Blood Cells # 0.0 Sodium Level 139 Potassium Level 4.4 Chloride Level 109 Carbon Dioxide Level 24 Anion Gap 6 Blood Urea Nitrogen 6 L Creatinine 0.64 Est Glomerular Filtrat Rate mL/min > 60 Glucose Level 100 Calcium Level 8.6 Phosphorus Level 3.7 Magnesium Level 2.1 Exam/Review of Systems Exam Vitals Vital Signs Date Temp Pulse Resp B/P (MAP) Pulse Ox O2 O2 Flow FiO2 Time Delivery Rate 07/05/18 99.2 100 20 121/59 97 15:53 (79) 07/05/18 Room Air 12:01 Intake and Output 07/04/18 07/04/18 07/05/18 1515:00 23:00 07:00 IntakeIntake Total 1100 ml 1220 ml 1300 ml BalanceBalance 1100 ml 1220 ml 1300 ml Results Results 24hrs Laboratory Tests Test 07/05/18 07:29 White Blood Count 12.2 #H Red Blood Count 3.94 L Hemoglobin 11.1 L Hematocrit 35.9 L Mean Corpuscular Volume 91.1 Mean Corpuscular Hemoglobin 28.2 L Mean Corpuscular Hemoglobin Concent 30.9 L Red Cell Distribution Width 13.9 Platelet Count 245 Mean Platelet Volume 10.8 H Immature Granulocytes % 0.400 Neutrophils % 70.9 Lymphocytes % 15.9 Monocytes % 10.2 Eosinophils % 2.3 Basophils % 0.3 Nucleated Red Blood Cells % 0.0 Immature Granulocytes # 0.050 H Neutrophils # 8.7 H Lymphocytes # 1.9 Monocytes # 1.2 H Eosinophils # 0.3 Basophils # 0.0 Nucleated Red Blood Cells # 0.0 Sodium Level 139 Potassium Level 4.4 Chloride Level 109 Carbon Dioxide Level 24 Anion Gap 6 Blood Urea Nitrogen 6 L Creatinine 0.64 Est Glomerular Filtrat Rate mL/min > 60 Glucose Level 100 Calcium Level 8.6 Phosphorus Level 3.7 Magnesium Level 2.1 Medications Medication Current Medications Piperacillin Sod/ Tazobactam Sod 100 ml @ 200 mls/hr Q6 IVPB Last administered on 07/05/18 12:43; Admin Dose 200 MLS/HR; Start 07/03/18 at 18:00 Sodium Chloride 1,000 ml @ 150 mls/hr Q6H40M IV Last administered on 07/05/18 12:49; Admin Dose 150 MLS/HR; Start 07/03/18 at 13:56 IV Flush (NS 3 ml) 3 ml PER PROTOCOL IV ; Start 07/03/18 at 14:00 Ondansetron HCl (Zofran Inj) 4 mg Q6H PRN IV NAUSEA/VOMITING Last administered on 07/04/18 22:39; Admin Dose 4 MG; Start 07/03/18 at 14:00 Acetaminophen/ Hydrocodone Bitart ([place] (5/325)) 1 tab Q6H PRN PO .PAIN 4-6 Last administered on 07/05/18at 01:48; Admin Dose 1 TAB; Start 07/03/18 at 14:00 Morphine Sulfate (morphine) 4 mg Q4H PRN IV .PAIN 7-10 Last administered on 07/05/18at 14:08; Admin Dose 4 MG; Start 07/03/18 at 14:00 Albuterol/ Ipratropium (Duoneb) 3 ml Q2H RESP THERAPY PRN HHN shortness of breath; Start 07/03/18 at 15:00 Famotidine (Pepcid Iv) 20 mg Q12 IV Last administered on 07/05/18 12:43; Admin Dose 20 MG; Start 07/04/18 at 21:00 Oxycodone/ Acetaminophen (Percocet (5/ 325)) 1 tab Q4H PRN PO .MILD PAIN (1-3); Start 07/05/18 at 11:00 Oxycodone/ Acetaminophen (Percocet (5/ 325)) 2 tab Q4H PRN PO .MODERATE PAIN (4-6); Start 07/05/18 at 11:00 Morphine Sulfate (morphine) 2 mg ONCE PRN IV .SEVERE PAIN 7-10; Start 07/05/18 at 11:00; Stop 07/06/18 at 10:59 Ondansetron HCl (Zofran Inj) 4 mg Q6H PRN IV NAUSEA/VOMITING; Start 07/05/18 at 11:00 NAVARRO NAVARRO NP July 05, 2018 16:17
[2018-07-05] MEDS ORDERED: ACETAMINOPHEN 325 MG TAB PO PRN (21:00)
[2018-07-06] MEDS: SOD CHLORIDE 0.9% 1,000 ML IV SCH ×3 (01:56→08:36)
[2018-07-06 02:34] VITALS: BP 137/73; PULSE 100; RESP 18
[2018-07-06] MEDS: PIPER-TAZO 3.375 GM IV (PMX) 100 ML IVPB SCH (05:39)
[2018-07-06 08:00] VITALS: BP 113/61; PULSE 88; RESP 20
[2018-07-06] MEDS: FAMOTIDINE 20 MG INJ IV SCH (09:06)
--- NOTE | 2018-07-06 11:19 | QN ---
Documentation Comment Postoperative day #1 Markedly symptomatically improved Leukocytosis resolved LFTs are normal Abdominal examination is benign SHAYNA drainage is serosanguineous Plan: SHAYNA drain removed. Patient is cleared for discharge home today with p.o. pain medications and antibiotics. Office follow-up in 1 week for staple removal GEMA POLLARD MD July 06, 2018 11:19
[2018-07-06] MEDS ORDERED: HYDR-4011 PO (12:51)
[2018-07-06] MEDS ORDERED: AMOX1TAB10 PO (12:51)
[2018-07-06] MEDS ORDERED: DOCU-144 PO (12:51)
--- NOTE | 2018-07-06 12:56 | PDOCDIS ---
Discharge Instructions CONDITION [id number] Patient Condition: [id number] Stable HOME CARE INSTRUCTIONS: [id number] Diet Instructions: [id number] Low Fat /Cholesterol FOLLOW UP/APPOINTMENTS Follow-up Plan Cesar Stover MD Specialty: General Surgery Office Address [address] [place] [address] Office OTHER ORDERS: Other Orders: 1. Take a regular, preferably low-cholesterol diet as tolerated. 2. Keep incisions clean and dry. May shower. Avoid tub baths and swimming for 2 weeks. Use mild soap and pat dry the incisions. 3. Take medications as needed for pain. 4. Call the surgeon or go to the nearest ER if you have severe abdominal pain despite pain medications. 5. Call the surgeon or go to the nearest ER if you notice any bleeding or secretions coming out of the incision sites. Also call the surgeon if you notice any blood in stool, if you have persistent fevers, or any other unusual signs or symptoms. 6. Follow-up with the surgeon [Dr. Stover] in 7 days for incision check. 7. Avoid heavy lifting [more than 10-15 pounds] for 4 weeks. NAVARRO NAVARRO NP July 06, 2018 12:56
--- NOTE | 2018-07-06 13:00 | DS ---
Date/Time of Note Date/Time of Note DATE: 07/06/18 TIME: 12:58 Discharge Summary Admission/Discharge Info Admit Date/Time July 03, 2018 at 13:52 Discharge Date/Time Discharge Diagnosis 1. Cholecystitis. Status post laparoscopic cholecystectomy and placement of a drain on 07/05/2018. 2. Morbid obesity. -BMI more than 55 kg/m 3. History of asthma. Patient Condition: Stable Consults 1. Cesar Stover MD, General Surgery. Procedures Operative Report Procedure Date: July 05, 2018 Preoperative Diagnosis Acute cholecystitis Postoperative Diagnosis Acute cholecystitis Operation/Procedure Performed 1. Laparoscopic cholecystectomy 2. Placement of drain Surgeon Cesar Stover MD Hx of Present Illness This is a 28-year-old female with comorbidities including morbid obesity and asthma who presented to [facility] with abdominal pain with gallbladder ultrasound showing cholelithiasis with mild gallbladder wall thickening and trace pericholecystic fluid who was admitted to inpatient setting. Hospital Course The patient was kept n.p.o. She was started on empiric antimicrobials including coverage for anaerobes. The patient was provided with adequate pain control. The patient was taken to the OR on 07/05/2018 the patient underwent a laparoscopic cholecystectomy and placement of a drain. Status post surgery, she was started on a clear liquid diet and the diet was advanced as tolerated to a regular consistency diet without any significant gastrointestinal symptoms. The patient was continued on antibiotics since the patient had evidence of significant cholecystitis. The patient was encouraged on frequent ambulation and frequent use of incentive spirometry. The patient is morbidly obese with a BMI of more than 55 kg/m. The patient's A1c was within normal limits. The patient's fasting lipid panel was satisfactory. The patient was advised on weight reduction. The patient also has a history of asthma. The patient remained stable without any evidence of any bronchospasms. The patient was cleared by general surgery to be discharged home. Discharge Instructions 1. Take a regular, preferably low-cholesterol diet as tolerated. 2. Keep incisions clean and dry. May shower. Avoid tub baths and swimming for 2 weeks. Use mild soap and pat dry the incisions. 3. Take medications as needed for pain. 4. Call the surgeon or go to the nearest ER if you have severe abdominal pain despite pain medications. 5. Call the surgeon or go to the nearest ER if you notice any bleeding or secretions coming out of the incision sites. Also call the surgeon if you notice any blood in stool, if you have persistent fevers, or any other unusual signs or symptoms. 6. Follow-up with the surgeon [Dr. Stover] in 7 days for incision check. 7. Avoid heavy lifting [more than 10-15 pounds] for 4 weeks. The patient verbalized understanding of her discharge instructions. At this time I would like to thank Dr. Stover for seeing the patient, doing the necessary procedures, and providing clinical recommendations. The patient was seen in collaboration with Dr. Olvera. Home Meds [employer] [Work Note] No Conflict Check This is to certify that this patient was admitted to [facility] from 07/04/2018 to 07/06/2018. She may return back to work on 07/09/2018 with restriction of no heavy lifting more than 15 pounds until August 02, 2018. Prov:NAVARRO NAVARRO NP 07/06/18 Docusate Sodium* (Colace*) 100 Mg Capsule, 100 MG PO BID, #20 CAP Prov:NAVARRO NAVARRO NP 07/06/18 Hydrocodone/Acetaminophen ([place] 5-325 Tablet) 1 Each Tablet, 1 EACH PO Q6H for Pain, #14 TAB Prov:NAVARRO NAVARRO NP 07/06/18 Amoxicillin/Potassium Clav (Amox-Clav 875-125 mg Tablet) 875-125 mg Tab, 1 TAB PO BID for 7 Days, #14 TAB Prov:NAVARRO NAVARRO NP 07/06/18 Reported Medications Albuterol Sulfate* (Ventolin HFA*) 18 Gm Hfa.aer.ad, 2 PUFF INHALATION Q4H PRN for NEEDED, #1 INHALER 07/03/18 Follow-up Plan Cesar Stover MD Specialty: General Surgery Office Address [address] [place], [place] [id number] Office Primary Care Provider Care Physician No Primary Time spent on discharge: > 30 minutes Pending Labs Laboratory Tests Test 07/06/18 05:40 White Blood Count 10.9 10^3/ul (4.8-10.8) Red Blood Count 3.51 10^6/ul (4.20-5.40) Hemoglobin 10.1 g/dl (12.0-16.0) Hematocrit 31.8 % (37.0-47.0) Mean Corpuscular Volume 90.6 fl (82.0-101.0) Mean Corpuscular Hemoglobin 28.8 pg (29.0-33.0) Mean Corpuscular Hemoglobin Concent 31.8 g/dl (32.0-37.0) Red Cell Distribution Width 14.2 % (11.5-14.5) Platelet Count 237 10^3/UL (140-415) Mean Platelet Volume 11.0 fl (7.4-10.4) Immature Granulocytes % 0.400 % (0.001-0.429) Neutrophils % 77.1 % (39.0-77.0) Lymphocytes % 14.0 % (15.0-51.0) Monocytes % 7.4 % (0.0-11.0) Eosinophils % 0.7 % (0.0-7.0) Basophils % 0.4 % (0.0-2.0) Nucleated Red Blood Cells % 0.0 /100WBC (0.0-0.0) Immature Granulocytes # 0.040 10^3/ul (0.0-0.031) Neutrophils # 8.4 10^3/ul (1.6-7.5) Lymphocytes # 1.5 10^3/ul (0.8-2.9) Monocytes # 0.8 10^3/ul (0.3-0.9) Eosinophils # 0.1 10^3/ul (0.0-0.5) Basophils # 0.0 10^3/ul (0.0-0.1) Nucleated Red Blood Cells # 0.0 10^3/ul (0.0-0.0) Sodium Level 139 mmol/L (135-144) Potassium Level 3.8 mmol/L (3.5-5.1) Chloride Level 110 mmol/L (97-110) Carbon Dioxide Level 22 mmol/L (21-31) Anion Gap 7 (5-13) Blood Urea Nitrogen 7 mg/dl (7-20) Creatinine 0.62 mg/dl (0.44-1.00) Est Glomerular Filtrat Rate mL/min > 60 mL/min (>60) Glucose Level 101 mg/dl (70-220) Calcium Level 8.3 mg/dl (8.4-10.2) Phosphorus Level 2.9 mg/dl (2.5-4.9) Magnesium Level 2.0 mg/dl (1.7-2.5) Total Bilirubin 0.5 mg/dl (0.2-1.3) Direct Bilirubin 0.00 mg/dl (0.00-0.20) Indirect Bilirubin 0.5 mg/dl (0-1.1) Aspartate Amino Transf (AST/SGOT) 64 IU/L (15-46) Alanine Aminotransferase (ALT/SGPT) 64 IU/L (13-69) Alkaline Phosphatase 74 IU/L (42-121) Total Protein 6.3 g/dl (6.1-8.1) Albumin 3.2 g/dl (3.3-4.9) Globulin 3.10 g/dl (1.3-3.2) Albumin/Globulin Ratio 1.03 Microbiology Date/Time Source Procedure Growth Status 07/05/18 15:05 Clean Catch Urine Urine Culture - Preliminary NO Resulted GROWTH AFTER 24 HOURS NAVARRO NAVARRO [employer] SPECIALIST July 06, 2018 13:00
[2018-07-06] MEDS ORDERED: Work Note (13:21)
--- NOTE | 2018-07-09 09:12 | RADRPT ---
Vent Rate: 81 bpm RR Interval: 740 msec TX Interval: 139 msec QRS Duration: 82 msec QT Interval: 401 msec QTC Interval: 466 msec P-R-T [place]: 33 - 16 - 13 degrees Sinus rhythm...normal Electronically Signed By: Dov Darling
== END 2018-07-06 14:13 | disposition home or self-care (01) | DRG 418 ==
LOC: FTE 10:23 → 2NE 13:52 → SUATTDRO 13:53
PROVIDERS: ADMIT Internal Medicine; ATTEND Internal Medicine
PROC: 0FT44ZZ Resection of Gallbladder, Percutaneous Endoscopic Approach (ICD-10-PCS; principal; 2018-07-05 09:00)
DX: K80.00 Calculus of gallbladder with acute cholecystitis without obstruction (principal); K21.9 Gastro-esophageal reflux disease without esophagitis; E66.01 Morbid (severe) obesity due to excess calories; Z68.43 Body mass index [BMI] 50.0-59.9, adult
CPT/HCPCS: 36415; 76705; 78226; 80048; 80053; 80061; 81001; 81025; 83036; 83690; 83735; 84100; 84443; 84484; 85025; 85610; 86850; 86900; 86901; 87086; 88304; 93005; 96361; 96374; 96375; 96376; A9537; C9113; J0131; J0690; J1170; J1885; J2250; J2270; J2405; J2543; J2710; J3010; J7030